=== PATIENT | female | born 1995 | race African-American/Black ===

== ENCOUNTER 2019-07-06 16:02 | Emergency (ER) | payer OTHER, SELFPAY ==
[2019-07-06 16:05] VITALS: BP 132/80; PULSE 102; RESP 16; TEMP 37.4; O2SAT 97; BMI 28.0
--- NOTE | 2019-07-06 16:12 | DI.RAD.S_ITS ---
PROCEDURE: XR TOE LT MIN 2V INDICATIONS: Pain after blunt trauma. TECHNIQUE: 3 views of the lateral toe(s) acquired. COMPARISON: None. FINDINGS: Bones: No displaced fractures or dislocations are identified involving the 4th or 5th toes. No suspicious osseous lesions are identified. The remainder of image osseous structures of the left foot are otherwise unremarkable. Soft tissues: No suspicious soft tissue densities. A punctate focus of increased attenuation is evident overlying the tip of the 5th toe, probably representing debris on the patient's skin. No definitive unexpected radiopaque foreign bodies are appreciated. IMPRESSION: No acute osseous abnormality of the left 4th or 5th toes. Dictated by: Levar Calle M.D. on 07/06/2019 at 15:29 Approved by: Levar Calle M.D. on 07/06/2019 at 15:30
--- NOTE | 2019-07-06 16:43 | ED_ITS ---
HPI - Extremity Injury (Lower) <ARI Cherry - Last Filed: 07/06/19 21:27> General Chief Complaint: Extremity Injury, Lower Stated Complaint: left foot 4th-5th digits injury x3 days ago Time Seen by Provider: 07/06/19 16:10 Source: patient Mode of arrival: ambulatory Limitations: no limitations History of Present Illness HPI Narrative: 24-year-old healthy female presents emergency department today complaining of left 4th and 5th toe pain. She states 3 days ago she stubbed her toes on the corner of a door. The pain has continued and she is concerned for fracture. She complains of associated swelling and ecchymosis. Denies foot pain, ankle pain, head trauma, fevers, chills, nausea, vomiting, diarrhea, shortness of breath, or chest pain. Related Data Allergies Allergy/AdvReac Type Severity Reaction Status Date / Time nickel Allergy Verified 07/06/19 16:41 Review of Systems <ARI Cherry - Last Filed: 07/06/19 21:27> Review of Systems Narrative: REVIEW OF SYSTEMS: GENERAL: Denies fever or chills. HENT: No head trauma. EYES: No double vision or vision loss. CARDIOVASCULAR: No chest pain or syncope. RESPIRATORY: No shortness of breath or cough. GASTROINTESTINAL: No nausea, vomiting, diarrhea, or constipation. GENITOURINARY: No flank pain or dysuria. MUSCULOSKELETAL: Complains of toe pain, see HPI. INTEGUMENTARY: No rash, lesions, or pruritus. NEURO: No numbness, tingling. PSYCH: No behavior or mood changes. PFSH <ARI Cherry - Last Filed: 07/06/19 21:27> Medical History No significant medical problems (Acute) Social History Smoking Status: Current every day smoker Social History Smoking Status: Current every day smoker Exam <ARI Cherry - Last Filed: 07/06/19 21:27> Initial Vital Signs Initial Vital Signs: Vital Signs Temperature 99.3 F 07/06/19 16:05 Pulse Rate 102 H 07/06/19 16:05 Respiratory Rate 16 07/06/19 16:05 Blood Pressure 132/80 07/06/19 16:05 Pulse Oximetry 97 07/06/19 16:05 PHYSICAL EXAMINATION: GENERAL: Well groomed, alert, and cooperative. Answers questions promptly and appropriately. Vital signs noted. HENT: Normocephalic, atraumatic. EYES: Symmetrical, sclera white, no periorbital swelling. RESPIRATORY: Normal respiratory rate, trachea midline, airway patent. No stridor, nasal flaring or accessory muscle use. Lungs are clear in all lacy. MUSCULOSKELETAL: Tenderness to palpation MIP joints of left 4th and 5th toes. No swelling, ecchymosis, erythema, or lacerations noted to area. No pain to left foot. Equal tone and mass bilaterally. No spinal tenderness or deformities. EXTREMITIES: CMS intact. No pedal edema. SKIN: Warm, dry, soft, appropriate color for ethnicity. No lesions, rashes, or wounds. NEURO: Alert and Oriented X 3. No sensory deficits. PSYCH: Appropriate affect and mood. <Patricia Christian DO - Last Filed: 07/07/19 07:13> Initial Vital Signs Initial Vital Signs: Vital Signs Temperature 99.3 F 07/06/19 16:05 Pulse Rate 102 H 07/06/19 16:05 Respiratory Rate 16 07/06/19 16:05 Blood Pressure 132/80 07/06/19 16:05 Pulse Oximetry 97 07/06/19 16:05 Course <ARI Cherry - Last Filed: 07/06/19 21:27> Orders Ordered: Discontinued Medications Ketorolac Tromethamine (Toradol) 30 mg IM NOW ONE Stop: 07/06/19 16:55 Last Admin: 07/06/19 16:59 Dose: 30 mg Documented by: PILY Vital Signs Vital signs: Vital Signs - 8 hr 07/06/19 16:05 Temperature 99.3 F Pulse Rate 102 H Respiratory Rate 16 Blood Pressure 132/80 Pulse Oximetry 97 <Patricia Christian DO - Last Filed: 07/07/19 07:13> Orders Ordered: Discontinued Medications Ketorolac Tromethamine (Toradol) 30 mg IM NOW ONE Stop: 07/06/19 16:55 Last Admin: 07/06/19 16:59 Dose: 30 mg Documented by: [email or web address] Vital Signs Vital signs: Vital Signs - 8 hr 07/06/19 16:05 Temperature 99.3 F Pulse Rate 102 H Respiratory Rate 16 Blood Pressure 132/80 Pulse Oximetry 97 MDM - Extremity Injury (Lower) <ARI Cherry - Last Filed: 07/06/19 21:27> Medical Records Attestation: I reviewed the patient's medical records. Lab Data Attestation: I reviewed the patient's lab results. Imaging Data Toe XR: Radiologist's impression: [address] [address] XRay Report Signed Patient: Brenda Adamson LMR#: [id number] : 1995Acct:[id number] Age/Sex: 24 / FDate of Service: 07/06/19 Loc: ED Accession Number: [id number] Procedure: XR toe LT min 2V Ordering Provider: Natasha Lorenz PROCEDURE: XR TOE LT MIN 2V INDICATIONS: Pain after blunt trauma. TECHNIQUE: 3 views of the lateral toe(s) acquired. COMPARISON: None. FINDINGS: Bones: No displaced fractures or dislocations are identified involving the 4th or 5th toes. No suspicious osseous lesions are identified. The remainder of image osseous structures of the left foot are otherwise unremarkable. Soft tissues: No suspicious soft tissue densities. A punctate focus of increased attenuation is evident overlying the tip of the 5th toe, probably representing debris on the patient's skin. No definitive unexpected radiopaque foreign bodies are appreciated. IMPRESSION: No acute osseous abnormality of the left 4th or 5th toes. Dictated by: Levar Calle M.D. on 07/06/2019 at 15:29 Approved by: Levar Calle M.D. on 07/06/2019 at 15:30 [facility] Narrative Medical decision making narrative: Most likely sprain (mechanism of injury, lack of fracture noted on x-ray), and less likely fracture. No concern for cellulitis or infection due to lack of erythema, swelling, or lesions. Discharge Plan Departure Patient Disposition: Home Clinical Impression: Sprain of toe Qualifiers: Encounter type: initial encounter Qualified Code(s): S93.509A - Unspecified sprain of unspecified toe(s), initial encounter Discharge Date/Time: 07/06/19 17:14 Instructions: DI for Toe Sprain Activity Restrictions/Additional Instructions: Thank you for entrusting me with your care today. As discussed, your x-rays are negative for any fractures. Your symptoms are most likely caused by a sprain. I recommend taking ibuprofen as needed for pain, wearing good supportive shoes, and shivam taping her toes if you find this helpful. Follow up with your primary care provider in the next few weeks if needed. Return to theemergency department today if you develop chest pain, shortness of breath, high fevers, or syncope.
[2019-07-06] MEDS: KETOROLAC 60 MG/2 ML VIAL 30 MG IM (16:59)
--- NOTE | 2019-07-06 17:03 | PC.NURSE ---
shivam tape toes/ extra dressings given/ states feels better.
== END 2019-07-06 17:14 | disposition home or self-care (01) ==
PROVIDERS: Emergency Provider Nurse Practitioner
DX: S93.509A Unspecified sprain of unspecified toe(s), initial encounter (principal)
CPT/HCPCS: 73660; 96372; 99282; 99283; J1885